=== PATIENT | male | born 1980 | race Asian ===

== ENCOUNTER 2017-06-08 07:59 | Outpatient (CLI) | payer OTHER ==
--- NOTE | 2017-06-08 09:33 | Ultrasound Report ---
Testicular ultrasound: Right groin pain. Both testicles are echogenically unremarkable. The right testicle measures 19 x 44 x 45 mm and the left measures 20 x 33 x 43 mm. Good flow identified bilaterally with color imaging. The right epididymis measures 11 mm and the left measures 8 mm. A small right hydrocele is identified. Imaging in the right inguinal region failed to identify hernia or other significant finding. Impressions: Small right hydrocele.
== END 2017-06-08 08:00 | disposition home or self-care (01) ==
LOC: SPVWC 07:59
PROVIDERS: ATTEND Family Medicine
DX: S39.013A Strain of muscle, fascia and tendon of pelvis, initial encounter (principal); N43.3 Hydrocele, unspecified; X58.XXXA Exposure to other specified factors, initial encounter; Y93.89 Activity, other specified; Y92.89 Other specified places as the place of occurrence of the external cause; Y99.8 Other external cause status
CPT/HCPCS: 93975